=== PATIENT | male | born 1950 | race Caucasian/White ===

== ENCOUNTER → 2019-12-17 | Outpatient (CLI) | payer MEDICARE, OTHER ==
--- NOTE | 2019-12-17 16:46 | Pulmonary Function Test ---
Pulmonary Function Test Date of Procedure:: 12/17/19 INDICATION:: Dyspnea Referring Provider: Dr. Henok May [employer] Supervisor: Puja Romero, TECHNICAL BUSINESS ANALYST, CAPSULE FILLING MACHINE OPERATOR - Report Spirometry: Spirometry: pre-FVC: 2.72 L 93% pre-FEV:1 2.19 L 96% pre-FEV1/FVC %: 81 predicted: 80 [id number]%: 2.49 L 103% Lung Volume: Total lung capacity: 4.16 L 82% Vital capacity: 2.72 L 93% Inspiratory capacity: 2.41 L FRC N2: 1.74 L 63% ERV: 0.14 L RV: 1.44 L 68% RV/TLC %:: 35 predicted 40 Diffusion Capactity: DLCO: 20.4 107% DLCO/VA: 5.52 150% Impression: No obstructive ventilatory defect. No restrictive ventilatory defect. Normal diffusion capacity.
== END ==
LOC: RT 07:58
PROVIDERS: ATTEND Hospitalist
DX: R06.00 Dyspnea, unspecified (principal)
CPT/HCPCS: 94010; 94727; 94729